=== PATIENT | male | born 1960 | race Caucasian/White ===

== ENCOUNTER → 2023-04-09 | Outpatient (CLI) | payer BC | LOC: M RAD 15:59 | PROVIDERS: ATTEND Physical Therapist | DX: F17.210 Nicotine dependence, cigarettes, uncomplicated (principal) ==

== ENCOUNTER 2023-06-25 07:42 | Day surgery (SDC) | payer BC ==
[~2023-06-25] VITALS: Ht 172.7 cm; Wt 76.1 kg
[~2023-06-25 07:42] MED LIST: APRE30TA3 PO; BSS IRR 500ML/OMIDRIA 4ML IRR BAG (OR ONLY) As Ordered ONE; CEFUROXIME 1MG/0.1ML INTRACAMERAL INJ As Ordered ONE; CYCLOPENTOLATE 1% OPHTH SOLN 2ML BTL OS SCH; LIDOCAINE 1% SDV 5ML VIAL As Ordered ONE; MIDAZOLAM INJ 2MG/2ML VIAL As Ordered ONE; OFLOXACIN 0.3 % (OCUFLOX) OPTH SOL 5ML OS SCH; PHENYLEPHRINE 2.5% OPHTH SOL 2ML OS SCH; PROPARACAINE 0.5% OPHTH SOL 15ML OS ONE; TROPICAMIDE 1% OPHTH SOLN 15ML OS SCH
[2023-06-25 09:39] VITALS: BP 139/79; TEMP 97.8; O2SAT 99
== END 2023-06-25 09:54 | disposition home or self-care (01) ==
LOC: M SDC 07:42
PROVIDERS: ATTEND Ophthalmology
DX: H25.12 Age-related nuclear cataract, left eye (principal); L40.9 Psoriasis, unspecified; Z87.891 Personal history of nicotine dependence; Z79.899 Other long term (current) drug therapy
CPT/HCPCS: 66984; J0697; J1097; J2250

== ENCOUNTER → 2023-06-27 | Outpatient (CLI) | payer BC ==
[~2023-06-27] MED LIST changes: -BSS IRR 500ML/OMIDRIA 4ML IRR BAG (OR ONLY) As Ordered ONE; -CEFUROXIME 1MG/0.1ML INTRACAMERAL INJ As Ordered ONE; -CYCLOPENTOLATE 1% OPHTH SOLN 2ML BTL OS SCH; -LIDOCAINE 1% SDV 5ML VIAL As Ordered ONE; -MIDAZOLAM INJ 2MG/2ML VIAL As Ordered ONE; -OFLOXACIN 0.3 % (OCUFLOX) OPTH SOL 5ML OS SCH; -PHENYLEPHRINE 2.5% OPHTH SOL 2ML OS SCH; -PROPARACAINE 0.5% OPHTH SOL 15ML OS ONE; -TROPICAMIDE 1% OPHTH SOLN 15ML OS SCH
== END ==
LOC: M RAD 09:39
PROVIDERS: ATTEND Physical Therapist
DX: R91.8 Other nonspecific abnormal finding of lung field (principal)

== ENCOUNTER 2023-09-20 08:57 | Day surgery (SDC) | payer BC ==
[~2023-09-20] VITALS: Ht 172.7 cm; Wt 76.1 kg
[~2023-09-20 08:57] MED LIST changes: +NS 1,000 ML IV ONE
[2023-09-20] MEDS ORDERED: propofoL 200 MG/20 ML VIAL As Ordered ONE (09:19)
[2023-09-20] MEDS ORDERED: LIDOCAINE 2% 100MG/5ML SDV (FOR ANES.) As Ordered ONE (09:19)
[2023-09-20 11:15] VITALS: TEMP 96.8
[2023-09-20 11:39] VITALS: BP 150/87; O2SAT 94
== END 2023-09-20 11:41 | disposition home or self-care (01) ==
LOC: M OPP 08:57
PROVIDERS: ATTEND Internal Medicine Gastroenterology
DX: D12.0 Benign neoplasm of cecum (principal); D12.3 Benign neoplasm of transverse colon; K63.5 Polyp of colon; K57.30 Diverticulosis of large intestine without perforation or abscess without bleeding; K56.699 Other intestinal obstruction unspecified as to partial versus complete obstruction; R19.5 Other fecal abnormalities; Z79.631 Long term (current) use of antimetabolite agent

== ENCOUNTER 2025-05-10 10:23 | Day surgery (SDC) | payer BC ==
[~2025-05-10] VITALS: Ht 172.7 cm; Wt 87.0 kg
[~2025-05-10 10:23] MED LIST changes: +ALBU8.5H; +BUDE10.22; +LR 1,000 ML IV SCH; -NS 1,000 ML IV ONE; +RISA150P
[2025-05-10] MEDS: CYCLOPENTOLATE 1% OPHTH SOLN 2 ML BTL OD SCH (10:43)
[2025-05-10] MEDS: PHENYLEPHRINE 2.5% OPHTH SOL 2ML OD SCH (10:43)
[2025-05-10] MEDS: FLURBIPROFEN 0.03% OPHTH SOLN 2.5 ML OD SCH (10:43)
[2025-05-10] MEDS: TETRACAINE 0.5% OPHTH SOLN 4ML OD SCH (10:43)
[2025-05-10] MEDS ORDERED: MIDAZOLAM INJ 2 MG/2 ML VIAL As Ordered ONE (10:59)
[2025-05-10] MEDS: LIDOCAINE 1% SDV 5 ML VIAL As Ordered ONE (12:22)
[2025-05-10] MEDS: CEFUROXIME 1 MG/0.1 ML INTRACAMERAL INJ As Ordered ONE (12:22)
[2025-05-10 12:28] VITALS: BP 154/83; TEMP 97.5; O2SAT 96
== END 2025-05-10 12:40 | disposition home or self-care (01) ==
LOC: M SDC 10:23
PROVIDERS: ATTEND Ophthalmology
DX: H25.11 Age-related nuclear cataract, right eye (principal); L40.9 Psoriasis, unspecified; Z87.891 Personal history of nicotine dependence; Z79.51 Long term (current) use of inhaled steroids
CPT/HCPCS: 66984; J0697; J2250; J3010